=== PATIENT | male | born 1965 | race Caucasian/White ===

== ENCOUNTER 2021-10-15 22:43 | Emergency (ER) | payer SELFPAY ==
[~2021-10-15] VITALS: Ht 175.3 cm; Wt 82.0 kg
[2021-10-15 22:53] VITALS: BP 143/91
[2021-10-15] MEDS ORDERED: HYDROCODONE/ACETAMINOPHEN 5/325MG TABLET PO STA (23:02)
[2021-10-15] MEDS ORDERED: AMOX-494 PO (23:16)
[2021-10-15] MEDS ORDERED: T3 PO (23:16)
[2021-10-15] MEDS ORDERED: IBUP-2030 PO (23:16)
[2021-10-15] MEDS ORDERED: BUPIVACAINE HCL/PF 0.25% (2.5MG/ML) 10ML INFIL ONE (23:30)
[2021-10-15] MEDS ORDERED: CEPHALEXIN 250MG CAPSULE PO ONE (23:30)
== END 2021-10-16 01:18 | disposition home or self-care (01) ==
LOC: ER 22:43
DX: K02.9 Dental caries, unspecified (principal)
CPT/HCPCS: 99283; J3490; Z7610